=== PATIENT | male | born 1990 | race Caucasian/White ===

== ENCOUNTER → 2016-05-23 | Outpatient (CLI) | payer OTHER ==
[~2016-05-23] MED LIST: CEPHALEXIN500 M1 PO; KLONOPIN 1MG1 MG PO; ULTRAM 50MG TAB50 MG PO
== END ==
LOC: BHSO 15:27
DX: F41.1 Generalized anxiety disorder (principal)

== ENCOUNTER → 2016-07-01 | Outpatient (CLI) | payer OTHER | LOC: BHSO 14:21 | DX: F41.1 Generalized anxiety disorder (principal) ==

== ENCOUNTER → 2016-08-18 | Outpatient (CLI) | payer OTHER | LOC: BHSO 14:27 | DX: F41.1 Generalized anxiety disorder (principal) ==

== ENCOUNTER → 2016-11-04 | Outpatient (CLI) | payer OTHER | LOC: BHSO 09:56 | DX: F41.1 Generalized anxiety disorder (principal) ==

== ENCOUNTER → 2017-02-24 | Outpatient (CLI) | payer OTHER | LOC: BHSO 15:02 | DX: F41.1 Generalized anxiety disorder (principal) ==

== ENCOUNTER → 2017-04-19 | Outpatient (CLI) | payer OTHER | LOC: BHSO 15:51 | DX: F41.1 Generalized anxiety disorder (principal) ==

== ENCOUNTER → 2017-07-11 | Outpatient (CLI) | payer OTHER | LOC: BHSO 16:00 | DX: F90.0 Attention-deficit hyperactivity disorder, predominantly inattentive type (principal) | CPT/HCPCS: G0463 ==

== ENCOUNTER → 2017-10-12 | Outpatient (CLI) | payer OTHER | LOC: BHSO 15:50 | DX: F41.1 Generalized anxiety disorder (principal) | CPT/HCPCS: G0463 ==

== ENCOUNTER → 2018-01-11 | Outpatient (CLI) | payer BC | LOC: BHSO 11:04 | DX: F41.1 Generalized anxiety disorder (principal) | CPT/HCPCS: G0463 ==

== ENCOUNTER → 2018-09-06 | Outpatient (CLI) | payer BC | LOC: BHSO 10:25 | DX: F41.1 Generalized anxiety disorder (principal) | CPT/HCPCS: G0463 ==

== ENCOUNTER → 2018-12-04 | Outpatient (CLI) | payer BC | LOC: BHSO 10:01 | DX: F41.1 Generalized anxiety disorder (principal) | CPT/HCPCS: G0463 ==

== ENCOUNTER → 2019-03-06 | Outpatient (CLI) | payer BC | LOC: BHSO 10:07 | DX: F41.1 Generalized anxiety disorder (principal) | CPT/HCPCS: G0463 ==

== ENCOUNTER → 2019-06-19 | Outpatient (CLI) | payer BC | LOC: BHSO 09:06 | DX: F42.8 Other obsessive-compulsive disorder (principal) | CPT/HCPCS: G0463 ==

== ENCOUNTER → 2019-12-12 | Outpatient (CLI) | payer BC | LOC: BHSO 09:20 | DX: F41.1 Generalized anxiety disorder (principal) | CPT/HCPCS: G0463 ==

== ENCOUNTER → 2020-03-10 | Outpatient (CLI) | payer BC | LOC: BHSO 15:44 | DX: F90.0 Attention-deficit hyperactivity disorder, predominantly inattentive type (principal) | CPT/HCPCS: G0463 ==